=== PATIENT | female | born 1945 | race Caucasian/White ===

== ENCOUNTER 2016-12-15 13:15 | Emergency (ER) | payer MEDICARE, OTHER ==
[2016-12-15] MEDS ORDERED: NORMAL SALINE 1,000 ML IV ONE (13:21)
--- NOTE | 2016-12-15 13:30 | ERNOTE ---
Head Injury HPI - Narrative Date of Service: 12/15/16 - General Injury to: head Time Seen by Provider: 12/15/16 13:20 Source: patient Exam Limitations: no limitations - Immun/Allergies/Home Medications Allergies/Adverse Reactions: Allergies Allergy/AdvReac Type Severity Reaction Status Date / Time No Known Allergies Allergy Unverified 12/15/16 13:24 Home Medications: HOME MEDICATIONS Atorvastatin Calcium 20 mg PO DAILY 12/15/16 [Last Taken Unknown] Donepezil HCl [Aricept] 10 mg PO DAILY 12/15/16 [Last Taken Unknown] Doxepin HCl [Sinequan] 10 mg PO TID 12/15/16 [Last Taken Unknown] Folic Acid 1 mg PO DAILY 12/15/16 [Last Taken Unknown] LORazepam [Ativan] 1 mg PO BID 12/15/16 [Last Taken Unknown] Levothyroxine Sodium [Synthroid] 50 mcg PO DAILY 12/15/16 [Last Taken Unknown] Metoprolol Succinate [Toprol Xl] 100 mg PO DAILY 12/15/16 [Last Taken Unknown] Mirtazapine [Mirtazapine (Remeron)] 15 mg PO HS 12/15/16 [Last Taken Unknown] Omeprazole 20 mg PO DAILY 12/15/16 [Last Taken Unknown] Potassium Chloride [K-Dur] 20 meq PO BID 12/15/16 [Last Taken Unknown] Sertraline HCl [Zoloft] 100 mg PO BID 12/15/16 [Last Taken Unknown] Valsartan 320 mg PO DAILY 12/15/16 [Last Taken Unknown] Warfarin Sodium [Coumadin] 4 mg PO ONCE 12/15/16 [Last Taken Unknown] Warfarin Sodium [Coumadin] 5 mg PO ONCE 12/15/16 [Last Taken Unknown] - History of Present Illness Narrative: Pt. comes in with c/ dizziness, lethargy. weakness, and nausea after hitting her posterior occiput this morning when the bed broke. Pt. family was able to help her up and she denied any injury when the incident occurred but then went to sleep and when her daughter woke her up the symptoms were noted. Occurred: this morning Location Occurred: home Severity: moderate Head Injury Location: occipital Method of Injury: Reports: fell Reason for Fall: Reports: other - bed broke Loss of Consciousness: Reports: no loss of consciousness, remembers event, remembers coming to hospital Associated Symptoms: Reports: headaches, neck pain, weakness, malaise, nausea, vomiting, other injuries - dizziness Review of Systems - Review of Systems Constitutional: Present: weakness, fatigue, malaise. Absent: recent illness, fever, chills EYE: Present: blurred vision - resolved now. Absent: double vision ENT: Present: nasal drainage - clear. Absent: pulling on ears, nose pain, nose congestion Respiratory: Present: no symptoms reported. Absent: shortness of breath, cough , wheezing Cardiology: Present: no symptoms reported. Absent: chest pain, palpitations, edema Gastrointestinal/Abdominal: Present: nausea, vomiting. Absent: diarrhea, abdominal pain Genitourinary: Present: no symptoms reported Musculoskeletal: Present: neck pain. Absent: back pain, joint pain Skin: Present: no symptoms reported Neurological: Present: headache, dizziness/light-headedness, weakness - generalized. Absent: numbness, tingling Hematologic/Lymphatic: Present: easy bruising, easy bleeding All Other Systems: All systems neg except as marked - Patient's Past Medical History Patient History - Cardiac/Respiratory: Atrial Fibrillation, CHF, Other - coumadin therapy Physical Exam - Physical Exam General Appearance: Present: wd/wn, no apparent distress, lethargic, obese Head Exam: Present: tenderness - post occiput. Absent: contusions, ecchymosis Eye Exam: Normal inspection: bilateral, PERRL: bilateral, EOMI: bilateral Ears, Nose, Throat: Present: normal except -, normal pharynx, other - clear nasal drainage Neck: Present: full range of motion, tender posterior midline - C2-3. Absent: lymphadenopathy (R), lymphadenopathy (L) Respiratory: Present: no respiratory distress, normal breath sounds, no accessory muscle use, chest nontender, lungs clear Cardiovascular/Chest: Present: regular rate, rhythm, no murmur, normal peripheral pulses Gastrointestinal/Abdominal: Present: normal bowel sounds, nontender, nondistended, soft, no organomegaly Back Exam: Present: normal inspection, normal range of motion, no CVA tenderness , no vertebral tenderness Extremity Exam: Present: normal inspection, non-tender, normal range of motion, no edema Neurological Exam: Present: oriented, normal mood/affect, no motor/sensory deficits, other - unable to stand, slow to respond, forgetting words, lethargic Skin Exam: Present: warm/dry, pallor ED Progress - Date and Time Seen: Date and Time: 12/15/16 13:56 Received report from daughter and she states that fall actually occurred when pt. was sitting on the edge of the bathtub and not as pt. first described. 12/15/16 15:[address] results with Dr Fisher and pt. daughter and Sub acute and chronic strokes oted on CT scan daughter does not note any new symptoms except for directly after fall as pt. has chronic dementia and deficits. Offered observation stay to daughter to rule out CVA and they decline which I feel is ok as pt. is not likely acute and is going to follow up with PCP in 2 days. - Results and Orders Patient's Lab Results:: I have reviewed the patient's lab results. - Vital Signs Patient's Vital Signs:: I have reviewed the patient's vital signs. - CT/Ultrasound CT/Ultrasound Narrative: CT head and neck with chronic changes including multiple chronic or sub acute strokes and multilevel herniated disks. - Progress/Reassessment Progress:: Improved Departure Clinical Impression: Brain concussion Qualifiers: Encounter type: initial encounter Loss of consciousness presence/duration: without LOC Qualified Code(s): S06.0X0A - Concussion without loss of consciousness, initial encounter - Departure Disposition: Home self-care Condition: Good Instructions: Post-Concussion Syndrome Additional Instructions: Please follow up with primary provider in 2-3 days to reassess pt. and decide on further testing or treatment plan. May take Tylenol sparingly but should use Biofreeze, heat and Ice first. Referrals: Arabella Reyes DO [Primary Care Provider] -
[2016-12-15 13:48] LABS: Hematocrit 37.9 % (37.0-47.0); Hemoglobin 12.2 gm/dL (12.5-16.0); Mean Cell Volume 85.2 fl (78-100); Mean Corpuscular Hemoglobin 27.4 pg (27-31); Mean Corpuscular Hgb Conc 32.2 g/dl (32-36); Mean Platelet Volume 10.4 fl (6.0-9.5); Neutrophil # 9.1 K/mm3 (1.3-6.0); Neutrophil % 91.6 % (42-75.0); Platelet Count 167 K/mm3 (150-450); Red Blood Count 4.45 M/mm3 (4.2-5.4); Red Cell Distribution Width 15.4 % (11.5-14.0); White Blood Count 9.9 K/mm3 (4.0-10.5)
[2016-12-15 13:50] LABS: Albumin * 3.4 gm/dl (3.4-5.0); BUN/Creatinine Ratio 10.4 (9.0-21.6); Bilirubin, Total 0.7 mg/dL (0.0-1.1); Ca. Corrected For Albumin 8.7 mg/dL (8.4-10.2); Calcium * 8.5 mg/dL (7.9-10.9); Carbon Dioxide 28.5 mmol/L (24-32.6); Potassium 3.5 mmol/L (3.4-4.6); Total Protein 6.9 gm/dL (6.2-8.2)
[2016-12-15 14:32] LABS: INR 1.89 INR (0.90-1.10)
[2016-12-15 14:49] LABS: Urine Bilirubin Negative (NEGATIVE); Urine Blood Negative /ul (NEGATIVE); Urine Ketone Negative (NEGATIVE); Urine Nitrite Negative (NEGATIVE); Urine Protein Negative (NEGATIVE); Urine Specific Gravity 1.025 SP.GR. (1.005-1.010); Urine Urobilinogen Normal (NORMAL); Urine pH 5.5 pH (5.0-7.0)
[2016-12-15 15:02] LABS: Urine Appearance Cloudy; Urine Bacteria 1+; Urine Color Yellow; Urine Hyaline Cast 0-5 /LPF; Urine RBC None Seen /hpf (0-5); Urine WBC None Seen /hpf (0-5)
[2016-12-15 15:24] VITALS: BP 127/71
== END 2016-12-15 15:20 | disposition home or self-care (01) ==
LOC: ER 13:15
DX: S06.0X0A Concussion without loss of consciousness, initial encounter (principal); Z79.01 Long term (current) use of anticoagulants; W18.2XXA Fall in (into) shower or empty bathtub, initial encounter; Y92.002 Bathroom of unspecified non-institutional (private) residence as the place of occurrence of the external cause; I48.91 Unspecified atrial fibrillation; I50.9 Heart failure, unspecified; R53.1 Weakness

== ENCOUNTER 2017-05-08 01:57 | Inpatient (IN) | payer MEDICARE, OTHER ==
--- NOTE | 2017-05-08 02:33 | ERNOTE ---
Medical Problem HPI - General Chief Complaint: General Assessment Time Seen by Provider: 05/08/17 02:26 Source: patient, RN notes reviewed, old records Exam Limitations: no limitations - Immun/Allergies/Home Medications Immunizations: IMMUNIZATION HX Immunizations Up to Date Yes History of Influenza Vaccine Yes Hx Pneumococcal Vaccination No Allergies/Adverse Reactions: Allergies No Known Allergies Allergy (Unverified 05/08/17 02:16) Home Medications: HOME MEDICATIONS Atorvastatin Calcium 20 mg PO DAILY 12/15/16 [Last Taken Unknown] Donepezil HCl [Aricept] 10 mg PO DAILY 12/15/16 [Last Taken Unknown] Doxepin HCl [Sinequan] 10 mg PO TID 12/15/16 [Last Taken Unknown] LORazepam [Ativan] 1 mg PO BID 12/15/16 [Last Taken Unknown] Levothyroxine Sodium [Synthroid] 50 mcg PO DAILY 12/15/16 [Last Taken Unknown] Metoprolol Succinate [Toprol Xl] 100 mg PO DAILY 12/15/16 [Last Taken Unknown] Mirtazapine [Mirtazapine (Remeron)] 15 mg PO HS 12/15/16 [Last Taken Unknown] Omeprazole 20 mg PO DAILY 12/15/16 [Last Taken Unknown] Potassium Chloride [K-Dur] 20 meq PO BID 12/15/16 [Last Taken Unknown] Valsartan 320 mg PO DAILY 12/15/16 [Last Taken Unknown] Warfarin Sodium [Coumadin] 4 mg PO ONCE 12/15/16 [Last Taken Unknown] Warfarin Sodium [Coumadin] 5 mg PO ONCE 12/15/16 [Last Taken Unknown] Alendronate Sodium [Fosamax] 70 mg PO 05/08/17 [Last Taken Unknown] Ascorbic Acid [Vitamin C] 500 mg PO 05/08/17 [Last Taken Unknown] - History of Present History Narrative: Patient has refused to get out of bed all day, complains of diarrhea and not feeling well. She has chronic diarrhea, and was really weak a day or so ago while in the shower. She has been living with her in [facility], but her step-daughter realized recently that they were not able to maintain themselves. The patient's has medical issues as does the patient herself , and so she decided that they need to live with her. None of these people are adjusted to each other, and the step-daughter is trying to get all of the health issues figured out. Patient has not eaten all day, but has drank 3 bottles (8 oz?) of water today, which is her "normal." Timing: unsure Severity: moderate Modifying Factors - (Improves): Present: other - nothing Modifying Factors - (Worsens): Present: other - nothing Review of Systems - Review of Systems Constitutional: Present: recent illness, weakness, fatigue, malaise EYE: Present: no symptoms reported ENT: Present: no symptoms reported Respiratory: Absent: shortness of breath, cough Cardiology: Absent: chest pain Gastrointestinal/Abdominal: Present: diarrhea. Absent: nausea, vomiting, abdominal pain Genitourinary: Present: no symptoms reported Musculoskeletal: Present: no symptoms reported Skin: Present: dryness Neurological: Present: depressed Endocrine: Present: no symptoms reported Psych: Present: depressed - Patient's Past Medical History Patient History - Medical: Anxiety, Dementia Patient History - Cardiac/Respiratory: Atrial Fibrillation, CHF, Hypertension, Other Patient History - Cancer: No Hx of Cancer Patient History - Surgical Procedures: No surgical history Patient History - Other: None - Social History Living Situations: spouse Abuse History: No History of abuse Psych History: Hx of Anxiety, Hx of Depression, Current tx/ever been on anti- depressants or anti-anxiety meds Smoking Status: Never smoker Have you smoked in the past 12 months: No Alcohol Use: none Drug Use: none - Immunizations Immunizations Up to Date: Yes Hx Pneumococcal Vaccination: No History of Influenza Vaccine: Yes Physical Exam - Physical Exam General Appearance: Present: alert, no apparent distress, obese Head Exam: Present: normal inspection, no evidence of injury Eye Exam: Normal inspection: bilateral, PERRL: bilateral, EOMI: bilateral Ears, Nose, Throat: Present: dry mucous membranes Neck: Present: normal inspection, nontender Respiratory: Present: no respiratory distress, normal breath sounds, no accessory muscle use, chest nontender, lungs clear Cardiovascular/Chest: Present: no murmur, irregularly irregular Gastrointestinal/Abdominal: Present: normal bowel sounds, nontender, nondistended, soft Back Exam: Present: normal inspection, normal range of motion Extremity Exam: Present: normal inspection, non-tender, normal range of motion, no edema Neurological Exam: Present: alert, head still operator II-XII nml as tested, disoriented to situation Skin Exam: Present: pallor ED Progress - Results and Orders Patient's Lab Results:: I have reviewed the patient's lab results. Results and Orders: Laboratory Last Values WBC 10.1 K/mm3 (4.0-10.5) 05/08/17 02:51 RBC 4.63 M/mm3 (4.2-5.4) 05/08/17 02:51 Hgb 13.2 gm/dL (12.5-16.0) 05/08/17 02:51 Hct 39.8 % (37.0-47.0) 05/08/17 02:51 MCV 86.0 fl (78-100) 05/08/17 02:51 MCH 28.5 pg (27-31) 05/08/17 02:51 MCHC 33.2 g/dl (32-36) 05/08/17 02:51 RDW 14.6 % (11.5-14.0) H 05/08/17 02:51 Plt Count 258 K/mm3 (150-450) 05/08/17 02:51 MPV 10.5 fl (6.0-9.5) H 05/08/17 02:51 Immature Gran % (Auto) 0.30 % (0.001-0.429) 05/08/17 02:51 Immature Gran # (Auto) 0.03 K/mm3 (0.000-0.0310) 05/08/17 02:51 Neutrophils % 91.2 % (42-75.0) H 05/08/17 02:51 Lymphocytes % 3.6 % (20-51) L 05/08/17 02:51 Monocytes % 4.1 % (0.0-9) 05/08/17 02:51 Eosinophils % 0.5 % (0.0-3.0) 05/08/17 02:51 Basophils % 0.3 % (0.0-1.0) 05/08/17 02:51 Nucleated RBC % 0.0 k/mm3 (0-1) 05/08/17 02:51 Neutrophils # 9.2 K/mm3 (1.3-6.0) H 05/08/17 02:51 Lymphocytes # 0.36 k/mm3 (1.5-3.5) L 05/08/17 02:51 Monocytes # 0.4 k/mm3 (0.0-1.0) 05/08/17 02:51 Eosinophils # 0.1 k/mm3 (0.0-0.7) 05/08/17 02:51 Absolute Basophils 0.0 k/mm3 (0.0-0.1) 05/08/17 02:51 Sodium 140 mmol/L (132-142) 05/08/17 02:51 Plasma Sodium 141 mmol/L (130-142) 05/08/17 02:51 Potassium 3.0 mmol/L (3.4-4.6) L 05/08/17 02:51 Chloride 103 mmol/L (97-106) 05/08/17 02:51 Carbon Dioxide 18.6 mmol/L (24-32.6) L 05/08/17 02:51 Anion Gap 21.4 mmol/L (6.8-13.8) H 05/08/17 02:51 BUN 26 mg/dL (3-23) H D 05/08/17 02:51 Creatinine 1.69 mg/dL (0.4-1.4) H D 05/08/17 02:51 Est GFR (Non-Af Amer) 32 mL/min (60-130) L D 05/08/17 02:51 BUN/Creatinine Ratio 15.4 (9.0-21.6) 05/08/17 02:51 Random Glucose 132 mg/dL (70-110) H 05/08/17 02:51 Lactic Acid, Venous 2.8 mmol/L (0.4-1.9) H* 05/08/17 02:51 Calcium 8.5 mg/dL (7.9-10.9) 05/08/17 02:51 Calcium Adj for Albumin 8.7 mg/dL (8.4-10.2) 05/08/17 02:51 Total Bilirubin 0.9 mg/dL (0.0-1.1) 05/08/17 02:51 AST 25 U/L (0-48) 05/08/17 02:51 ALT 29 U/L (19-67) 05/08/17 02:51 Alkaline Phosphatase 108 U/L (50-170) 05/08/17 02:51 Troponin I Less than 0.017 ng/ml (0.00-0.10) 05/08/17 02:51 B-Natriuretic Peptide 2535 pg/mL (5-325) H 05/08/17 02:51 Total Protein 7.1 gm/dL (6.2-8.2) 05/08/17 02:51 Albumin 3.3 gm/dl (3.4-5.0) L 05/08/17 02:51 Procalcitonin 0.26 ng/mL (0.05-0.50) 05/08/17 02:53 - Vital Signs Patient's Vital Signs:: I have reviewed the patient's vital signs. Vital Signs: Vital Signs 05/08/17 02:06 Temperature 36.7 C Pulse Rate 92 Respiratory 20 Rate Blood Pressure 89/46 O2 Sat by Pulse 94 Oximetry - EKG EKG: atrial fibrillation - with RVR, nonspecific ST T wave changes EKG read: Interp. by me - X-Ray X-Ray #1 X-Ray: chest Interpretation: Interp. by me X-ray Comments: Poor inspiration. Cardiomegaly. Surgical clips in left upper quadrant. No bony abnormalities noted other Kyphosis noted. X-Ray #2 X-Ray: abdomen Interpretation: Interp. by me X-ray Comments: No free air. Some Air/fluid levels in the lower abdomen. Surgical clips in both left and right upper abdomen. - Progress/Reassessment Chief Complaint: General Assessment Progress:: Improved Progress Note-Subjective: 05/08/17 04:50 I have spoken with KEMAL Beaver, Hospitalist, she agrees to accept the patient for admission for further evaluation and treatment. Will admit for observation. Departure Clinical Impression: Dehydration, moderate, Hypokalemia due to loss of potassium, Atrial fibrillation with rapid ventricular response Sepsis Qualifiers: Sepsis type: sepsis due to unspecified organism Qualified Code(s): A41.9 - Sepsis, unspecified organism - Departure Disposition: Still a patient Condition: Fair
[2017-05-08] MEDS ORDERED: NORMAL SALINE 1,000 ML IV ONE (02:54)
[2017-05-08 02:56] LABS: Hematocrit 39.8 % (37.0-47.0); Hemoglobin 13.2 gm/dL (12.5-16.0); Mean Corpuscular Hemoglobin 28.5 pg (27-31); Mean Corpuscular Hgb Conc 33.2 g/dl (32-36); Mean Platelet Volume 10.5 fl (6.0-9.5); Neutrophil # 9.2 K/mm3 (1.3-6.0); Neutrophil % 91.2 % (42-75.0); Platelet Count 258 K/mm3 (150-450); Red Blood Count 4.63 M/mm3 (4.2-5.4); Red Cell Distribution Width 14.6 % (11.5-14.0); White Blood Count 10.1 K/mm3 (4.0-10.5)
[2017-05-08 02:57] LABS: Anion Gap 21.4 mmol/L (6.8-13.8); BUN/Creatinine Ratio 15.4 (9.0-21.6); Blood Urea Nitrogen 26 mg/dL (3-23); Calcium * 8.5 mg/dL (7.9-10.9); Carbon Dioxide 18.6 mmol/L (24-32.6); Chloride 103 mmol/L (97-106); Glucose * 132 mg/dL (70-110); Sodium 140 mmol/L (132-142)
[2017-05-08 02:58] LABS: ALT 29 U/L (19-67); AST 25 U/L (0-48); Albumin * 3.3 gm/dl (3.4-5.0); Alkaline Phosphatase * 108 U/L (50-170); BNP * 2535 pg/mL (5-325); Bilirubin, Total 0.9 mg/dL (0.0-1.1); Ca. Corrected For Albumin 8.7 mg/dL (8.4-10.2); Total Protein 7.1 gm/dL (6.2-8.2); Troponin I Less than 0.017 ng/ml (0.00-0.10)
[2017-05-08] MEDS ORDERED: POTASSIUM CHLORIDE 10 MEQ in NORMAL SALINE 1,000 ML IV SCH (05:15)
[2017-05-08] MEDS: POTASSIUM CHLORIDE 10 MEQ in NORMAL SALINE 1,000 ML IV SCH ×2 (08:25→16:51)
[2017-05-08] MEDS ORDERED: DIATRIZOATE MEGLUMINE, SODIUM 30 ML BTL PO ONE (08:45)
--- NOTE | 2017-05-08 12:26 | HP ---
Chief Complaint - Chief Complaint Date of Service: 05/08/17 Time of Service: 10:00 Chief Complaint: Weakness, aggravation for past 2 weeks, generalized weakness, loss of ADLs to be independent. History of Present Illness: Alma Delia Wiley is a 72-year-old obese female who was presented to ER by family due to marked weakness and inability to get her diarrhea stopped. She has been lightheaded and weak. Onset of diarrhea was 2 weeks ago. - Patient's Past Medical History Patient History - Medical: Anxiety, Dementia, Depression, Hypothyroidism Patient History - Cardiac/Respiratory: Atrial Fibrillation, CHF, Hypertension, Hyperlipidemia, Other Patient History - Cancer: No Hx of Cancer Patient History - Surgical Procedures: Cholecystectomy, Gastric Bypass Patient History - Other: None - Family History Mother Family History - Medical: Family History - Cardiac/Respiratory: CVA/Stroke Father Family History - Medical: Family History - Cardiac/Respiratory: History Unknown Family History - Cancer: History Unknown Brother Family History - Medical: History Unknown Family History - Cardiac/Respiratory: CVA/Stroke Family History - Cancer: History Unknown Sister Family History - Medical: History Unknown Family History - Cardiac/Respiratory: CVA/Stroke Family History - Cancer: History Unknown - Social History Living Situations: other Abuse History: No History of abuse Psych History: Psychiatric Hx, Hx of Anxiety, Hx of Depression, Current tx/ever been on anti-depressants or anti-anxiety meds Smoking Status: Never smoker Have you smoked in the past 12 months: No Alcohol Use: none Drug Use: none - Immunizations Immunizations Up to Date: Yes Hx Pneumococcal Vaccination: No History of Influenza Vaccine: Yes Review Of Systems (GEN) - Review of Systems Generalized/Overall Review: Present: Weakness, Fatigue, Weight loss EENTM: Present: No Symptoms Reported Respiratory: Present: No Symptoms Reported Cardiac: Present: Other - History of A. fib with RVR Abdominal: Present: Diarrhea - Several times a day for the past 2 weeks. Absent : Melena, Bright blood from rectum Genitourinary: Present: Oliguria Musculoskeletal: Present: No Symptoms Reported Neurological: Present: Depressed Skin: Present: No Symptoms Reported Endocrine: Present: No Symptoms Reported, Other - History of hypothyroidism Misc: All systems neg except as marked Allergies/Adverse Reactions: Allergies Allergy/AdvReac Type Severity Reaction Status Date / Time Milk Containing Products AdvReac Severe Diarrhea Verified 05/08/17 06:29 adhesive tape AdvReac Unknown Verified 05/08/17 06:29 Penicillins AdvReac Unknown Verified 05/08/17 06:27 Home Medications: HOME MEDICATIONS Atorvastatin Calcium 1 tab PO HS 12/15/16 [Last Taken Unknown] Donepezil HCl [Aricept] 10 mg PO HS 12/15/16 [Last Taken Unknown] Doxepin HCl [Sinequan] 10 mg PO TID 12/15/16 [Last Taken Unknown] LORazepam [Ativan] 1 mg PO BID 12/15/16 [Last Taken Unknown] Levothyroxine Sodium [Synthroid] 50 mcg PO QAM 12/15/16 [Last Taken Unknown] Metoprolol Succinate [Toprol Xl] 100 mg PO DAILY 12/15/16 [Last Taken Unknown] Mirtazapine [Mirtazapine (Remeron)] 15 mg PO HS 12/15/16 [Last Taken Unknown] Warfarin Sodium [Coumadin] 4 mg PO DAILY 12/15/16 [Last Taken Unknown] Alendronate Sodium [Fosamax] 70 mg PO PRN 05/08/17 [Last Taken Unknown] Ascorbic Acid [Vitamin C] 500 mg PO DAILY 05/08/17 [Last Taken Unknown] Folic Acid 1 mg PO DAILY 05/08/17 [Last Taken Unknown] Omeprazole [Prilosec] 20 mg PO QAM 05/08/17 [Last Taken Unknown] Potassium Chloride [K-Dur] 20 meq PO BID 05/08/17 [Last Taken Unknown] Sertraline HCl [Zoloft] 2 tab PO DAILY 05/08/17 [Last Taken Unknown] Valsartan/Hydrochlorothiazide [Diovan Hct 320-25 mg Tablet] 1 each PO DAILY [Last Taken Unknown] Exam - Exam Vital Signs: Vital Signs - Last Taken Temp 36.6 C 05/08/17 12:07 Pulse 78 05/08/17 12:07 Resp 18 05/08/17 12:07 BP 108/61 05/08/17 12:07 Pulse Ox 96 05/08/17 12:07 Constitutional: Present: Alert, Oriented x3, Cooperative, Well developed, Well nourished, Obese ENT Exam: Present: normal ENT inspection, hearing grossly normal, pharynx normal Eye Exam: bilateral eye: normal inspection, PERRL, EOMI Neck: Present: non-tender, normal inspection, trachea midline. Absent: lymphadenopathy (R), lymphadenopathy (L) Back Exam: Present: vertebral tenderness - At about L1 Respiratory: Present: chest non-tender, lungs clear, normal breath sounds, no respiratory distress, no accessory muscle use Cardiovascular/Chest: Present: normal peripheral pulses, irregularly irregular Peripheral Pulses: carotid (R): 2+, carotid (L): 2+, femoral (R): 2+, femoral (L ): 2+, dorsalis-pedis (R): 1+, dorsalis-pedis (L): 1+, radial (R): 2+, radial (L ): 2+ Abdomen: Present: Normal bowel sounds, soft, tender - In the right upper quadrant. 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 Absent: normal mood/affect, oriented x 3 Appearance: Present: appropriate appearance, appropriate insight Eye contact: Present: cooperative, good eye contact, normal speech Thoughts: Present: normal thought pattern, no apparent hallucination - Alma Delia takes a lot of psych meds but seems rational and conversant this morning. Diagnostic Studies: Abnormal Lab Results 05/08/17 Range/Units Unknown D-Dimer 0.72 H (0.19-0.49) mg/L Laboratory Results WBC 10.1 K/mm3 (4.0-10.5) 05/08/17 02:51 RBC 4.63 M/mm3 (4.2-5.4) 05/08/17 02:51 Hgb 13.2 gm/dL (12.5-16.0) 05/08/17 02:51 Hct 39.8 % (37.0-47.0) 05/08/17 02:51 MCV 86.0 fl (78-100) 05/08/17 02:51 MCH 28.5 pg (27-31) 05/08/17 02:51 MCHC 33.2 g/dl (32-36) 05/08/17 02:51 RDW 14.6 % (11.5-14.0) H 05/08/17 02:51 Plt Count 258 K/mm3 (150-450) 05/08/17 02:51 MPV 10.5 fl (6.0-9.5) H 05/08/17 02:51 Immature Gran % (Auto) 0.30 % (0.001-0.429) 05/08/17 02:51 Immature Gran # (Auto) 0.03 K/mm3 (0.000-0.0310) 05/08/17 02:51 Neutrophils % 91.2 % (42-75.0) H 05/08/17 02:51 Lymphocytes % 3.6 % (20-51) L 05/08/17 02:51 Monocytes % 4.1 % (0.0-9) 05/08/17 02:51 Eosinophils % 0.5 % (0.0-3.0) 05/08/17 02:51 Basophils % 0.3 % (0.0-1.0) 05/08/17 02:51 Nucleated RBC % 0.0 k/mm3 (0-1) 05/08/17 02:51 Neutrophils # 9.2 K/mm3 (1.3-6.0) H 05/08/17 02:51 Lymphocytes # 0.36 k/mm3 (1.5-3.5) L 05/08/17 02:51 Monocytes # 0.4 k/mm3 (0.0-1.0) 05/08/17 02:51 Eosinophils # 0.1 k/mm3 (0.0-0.7) 05/08/17 02:51 Absolute Basophils 0.0 k/mm3 (0.0-0.1) 05/08/17 02:51 D-Dimer 0.72 mg/L (0.19-0.49) H 05/08/17 Unknown Sodium 140 mmol/L (132-142) 05/08/17 02:51 Plasma Sodium 141 mmol/L (130-142) 05/08/17 02:51 Potassium 3.0 mmol/L (3.4-4.6) L 05/08/17 02:51 Chloride 103 mmol/L (97-106) 03/17/18 02:51 Carbon Dioxide 18.6 mmol/L (24-32.6) L 05/08/17 02:51 Anion Gap 21.4 mmol/L (6.8-13.8) H 05/08/17 02:51 BUN 26 mg/dL (3-23) H D 05/08/17 02:51 Creatinine 1.69 mg/dL (0.4-1.4) H D 05/08/17 02:51 Est GFR (Non-Af Amer) 32 mL/min (60-130) L D 05/08/17 02:51 BUN/Creatinine Ratio 15.4 (9.0-21.6) 05/08/17 02:51 Random Glucose 132 mg/dL (70-110) H 05/08/17 02:51 Lactic Acid, Venous 1.7 mmol/L (0.4-1.9) 05/08/17 05:30 Calcium 8.5 mg/dL (7.9-10.9) 05/08/17 02:51 Calcium Adj for Albumin 8.7 mg/dL (8.4-10.2) 05/08/17 02:51 Total Bilirubin 0.9 mg/dL (0.0-1.1) 05/08/17 02:51 AST 25 U/L (0-48) 05/08/17 02:51 ALT 29 U/L (19-67) 05/08/17 02:51 Alkaline Phosphatase 108 U/L (50-170) 05/08/17 02:51 Troponin I Less than 0.017 ng/ml (0.00-0.10) 05/08/17 02:51 B-Natriuretic Peptide 2535 pg/mL (5-325) H 05/08/17 02:51 Total Protein 7.1 gm/dL (6.2-8.2) 05/08/17 02:51 Albumin 3.3 gm/dl (3.4-5.0) L 05/08/17 02:51 Procalcitonin 0.26 ng/mL (0.05-0.50) 05/08/17 02:53 Stl C.difficile Tox A&B Negative (Negative) 05/08/17 Unknown Assessment/Plan - Narrative Narrative: In reviewing Alma Delia chart and especially her lab work we find that her d- dimer is elevated critically at 0.72. Her EGFR is quite low at 32 and her potassium is low at 3.0. Her BNP is high at 2535 and her albumin is low at 3.3. C. difficile screen done in ER was negative. The chest x-ray shows mild cardiomegaly with left lower lobe atelectasis. The x-ray is hypoventilatory and shows poor lung expansion. The KUB is abnormal showing abnormal bowel gas pattern suggestive of colitis or other diarrheal disease. Also incidental finding is a compression fracture of L1 which could be acute or chronic and Dr. Iverson suggests we consider pathological fracture. This will require an MRI will be done as an outpatient. Also her lactic acid level was elevated at 2.8 on admission but this morning is 1.7. ER physician was concerned possibly of sepsis but I suspect it's just from her intractable diarrhea. She has not been hypotensive since admission. She received a full liter of fluid in the ER for admission which is probably improved her status a lot. She has been rehydrated nicely through the night and this morning and appears to be much better hydrated at this point. Her mucous membranes are now moist. She is more alert and conversant. Her skin turgor is improved. Her bowel sounds are more normal now. And she is voiding some now. As well. I had wanted CT of her chest and abdomen with contrast today but elected not to since her renal status would not allow contrast media which would be required to see a pulmonary embolus. We will proceed with ultrasound of the legs. Proceed with echocardiogram when available. And I will anticoagulate her with aliquots 5 mg twice a day (due to her decreased renal function). We'll reassess her lab work again tomorrow morning and repeat chest x-ray tomorrow morning as well as another two-view abdomen. CT imaging will be deferred until I can get her renal status were safe. She'll continue to get IV fluids and IV potassium for now. Also check a sedimentation rate and a C-reactive protein. I 'll also have PT and OT evaluate her. - Assessment/Plan (1) Intractable diarrhea Problem: Acute (2) Dehydration, moderate Problem: Acute (3) Hypokalemia due to loss of potassium Problem: Acute (4) Sepsis Problem: Resolved Qualifiers: Sepsis type: sepsis due to unspecified organism Qualified Code(s): A41.9 - Sepsis, unspecified organism (5) Atrial fibrillation with rapid ventricular response Problem: Acute
[2017-05-08] MEDS: NYSTATIN 15 APPL BTL TP SCH ×2 (13:43→20:47)
[2017-05-08 13:48] LABS: Prothrombin Time (Patient) 20.7 Seconds (9.0-11.0)
[2017-05-08 13:49] LABS: INR 2.05 INR (0.90-1.10)
[2017-05-08] MEDS: DOXEPIN HCL 10 MG CAPSULE PO SCH ×2 (14:55→17:00)
[2017-05-08] MEDS: DIPHENOXYLATE HCL/ATROP SULF 2.5 MG TABLET PO SCH ×3 (14:55→20:45)
[2017-05-08 16:09] LABS: Urine Appearance Clear (CLEAR); Urine Bilirubin Negative (NEGATIVE); Urine Color Yellow; Urine Ketone Negative (NEGATIVE)
[2017-05-08 16:11] LABS: Urine Blood 5 /ul (NEGATIVE); Urine Nitrite Negative (NEGATIVE); Urine Protein Negative (NEGATIVE); Urine Urobilinogen Normal (NORMAL)
[2017-05-08 16:13] LABS: Urine Bacteria 2+; Urine RBC 0-5 /hpf (0-5); Urine WBC 0-5 /hpf (0-5)
[2017-05-08] MEDS ORDERED: WARFARIN SODIUM 1 MG TABLET ONE (17:56)
[2017-05-08] MEDS ORDERED: WARFARIN SODIUM 4 MG TABLET PO ONE (18:00)
[2017-05-08] MEDS: LORazepam 1 MG TABLET PO SCH (20:44)
[2017-05-08] MEDS: MIRTAZAPINE 15 MG TABLET PO SCH (20:45)
[2017-05-08] MEDS ORDERED: POTASSIUM CHLORIDE 20 MEQ TABLET.SA PO SCH (21:00)
[2017-05-09] MEDS: POTASSIUM CHLORIDE 10 MEQ in NORMAL SALINE 1,000 ML IV SCH ×2 (01:20→11:37)
[2017-05-09 03:09] LABS: Hematocrit 29.9 % (37.0-47.0); Mean Cell Volume 86.2 fl (78-100); Mean Corpuscular Hemoglobin 28.8 pg (27-31); Mean Corpuscular Hgb Conc 33.4 g/dl (32-36); Mean Platelet Volume 9.5 fl (6.0-9.5); Neutrophil % 68.1 % (42-75.0); Platelet Count 146 K/mm3 (150-450); Red Blood Count 3.47 M/mm3 (4.2-5.4); White Blood Count 5.8 K/mm3 (4.0-10.5)
[2017-05-09 03:22] LABS: BUN/Creatinine Ratio 15.7 (9.0-21.6); CRP 3.9 mg/dL (0.0-0.9); Calcium * 7.4 mg/dL (7.9-10.9); Estimated Creat Clear 35.8; Magnesium 1.5 mg/dL (1.2-2.8)
[2017-05-09 03:26] LABS: Potassium 2.4 mmol/L (3.4-4.6)
[2017-05-09 03:32] LABS: Anion Gap 13.8 mmol/L (6.8-13.8); Carbon Dioxide 23.6 mmol/L (24-32.6)
[2017-05-09] MEDS ORDERED: POTASSIUM CHLORIDE 20 MEQ TABLET.SA PO ONE (04:37)
[2017-05-09] MEDS: LEVOTHYROXINE SODIUM 50 MCG TABLET PO SCH (06:37)
[2017-05-09] MEDS: PANTOPRAZOLE SODIUM 20 MG TABLET.DR PO SCH (06:37)
[2017-05-09 08:32] LABS: Prothrombin Time (Patient) 30.8 Seconds (9.0-11.0)
[2017-05-09 08:33] LABS: INR 3.05 INR (0.90-1.10)
[2017-05-09] MEDS ORDERED: HYDROCHLOROTHIAZIDE PO SCH (09:00)
[2017-05-09] MEDS ORDERED: VALSARTAN PO SCH (09:00)
[2017-05-09] MEDS ORDERED: [UNRECOGNIZED DRUG - OTHER] PO SCH (09:00)
[2017-05-09] MEDS: DOXEPIN HCL 10 MG CAPSULE PO SCH ×3 (09:15→16:33)
[2017-05-09] MEDS: NYSTATIN 15 APPL BTL TP SCH ×2 (09:15→20:19)
[2017-05-09] MEDS: LOSARTAN POTASSIUM 50 MG TABLET PO SCH (09:16)
[2017-05-09] MEDS: METOPROLOL SUCCINATE 100 MG TABLET.SA PO SCH (09:16)
[2017-05-09] MEDS: FOLIC ACID 1 MG TABLET PO SCH (09:16)
[2017-05-09] MEDS: SERTRALINE HCL 100 MG TABLET PO SCH (09:16)
[2017-05-09] MEDS: HYDROCHLOROTHIAZIDE 25 MG TABLET PO SCH (09:16)
[2017-05-09] MEDS: LORazepam 1 MG TABLET PO SCH ×2 (09:17→20:16)
[2017-05-09] MEDS: DIPHENOXYLATE HCL/ATROP SULF 2.5 MG TABLET PO SCH ×4 (09:29→20:16)
--- NOTE | 2017-05-09 12:08 | PN ---
Subjective - Date and Time Seen Date: 05/09/17 Time: 10:15 Subjective Narrative: Alma Delia Wiley is better this morning. She is sitting up in a chair and appears to be comfortable. She is attended by her and daughter. She is alert, oriented 3, pleasant, and responds to questions appropriately. She has times of confusion but I don't detect any event this morning. She's had no further diarrhea since starting the Lomotil. In speaking with her daughter I find that she has diarrhea at times and constipation at times. This is probably irritable bowel syndrome. This past week she had excessive amounts of diarrhea. The daughter also relates that she chronically is low and potassium. Her potassium was low this morning at 2.4 and she was started on IV potassium. I have increased it from 10 mEq per liter to 40 mEq per liter for the next 2 L. She was converted to a regular hospital stay. Objective Objective Narrative: Vital signs show pulse of 88 BP 103/57 respirators are 16 and unlabored. Skin is warm dry and pink. Her oxygen level is in the upper 90s. - Review of Systems Generalized/Overall Review: Reports: Weakness EENTM: Reports: No Symptoms Reported Respiratory: Reports: No Symptoms Reported Cardiac: Reports: No Symptoms Reported Abdominal: Reports: Diarrhea - Has stopped for now. Genitourinary Symptoms: Reports: No Symptoms Reported Musculoskeletal Complaints: Reports: No Symptoms Reported Neurological: Reports: No Symptoms Reported Skin: Reports: No Symptoms Reported Endocrine: Reports: No Symptoms Reported Misc: All systems neg except as marked - Vitals Vitals: Last Vital Signs Temp 36.4 C L 05/09/17 07:15 Pulse 88 05/09/17 09:16 Resp 16 05/09/17 07:15 BP 103/57 05/09/17 09:16 Pulse Ox 98 05/09/17 07:15 - Abnormal Lab Findings Abnormal Lab Findings: Abnormal Lab Results 05/08/17 05/08/17 05/09/17 Range/Units 07:40 13:37 03:05 RBC 3.47 L (4.2-5.4) M/mm3 Hgb 10.0 L (12.5-16.0) gm/dL Hct 29.9 L (37.0-47.0) % RDW 15.0 H (11.5-14.0) % Plt Count 146 L (150-450) K/mm3 Lymphocytes % 17.1 L (20-51) % Monocytes % 10.2 H (0.0-9) % Eosinophils % 4.1 H (0.0-3.0) % Lymphocytes # 0.99 L (1.5-3.5) k/mm3 ESR (0-15) mm/hr PT 20.7 H (9.0-11.0) Seconds INR (Anticoag Therapy) 2.05 H (0.90-1.10) INR Potassium (3.4-4.6) mmol/L Chloride (97-106) mmol/L Carbon Dioxide (24-32.6) mmol/L BUN (3-23) mg/dL Creatinine (0.4-1.4) mg/dL Est GFR (Non-Af Amer) (60-130) mL/min Calcium (7.9-10.9) mg/dL C-Reactive Prot, Quant (0.0-0.9) mg/dL Urine Blood 5 H (NEGATIVE) /ul Urine Bacteria 2+ H (NONE) 05/09/17 05/09/17 05/09/17 Range/Units 03:05 03:05 Unknown RBC (4.2-5.4) M/mm3 Hgb (12.5-16.0) gm/dL Hct (37.0-47.0) % RDW (11.5-14.0) % Plt Count (150-450) K/mm3 Lymphocytes % (20-51) % Monocytes % (0.0-9) % Eosinophils % (0.0-3.0) % Lymphocytes # (1.5-3.5) k/mm3 ESR 25 H (0-15) mm/hr PT 30.8 H (9.0-11.0) Seconds INR (Anticoag Therapy) 3.05 H (0.90-1.10) INR Potassium 2.4 L* (3.4-4.6) mmol/L Chloride 107 H (97-106) mmol/L Carbon Dioxide 23.6 L (24-32.6) mmol/L BUN 24 H (3-23) mg/dL Creatinine 1.53 H (0.4-1.4) mg/dL Est GFR (Non-Af Amer) 36 L (60-130) mL/min Calcium 7.4 L (7.9-10.9) mg/dL C-Reactive Prot, Quant 3.9 H (0.0-0.9) mg/dL Urine Blood (NEGATIVE) /ul Urine Bacteria (NONE) - Exam Exam Narrative: Vital signs and physical parents are described above. Physical exam is as below. Constitutional: Present: Alert, Oriented x3, Cooperative, Well developed, Well nourished, No distress ENT Exam: Present: normal ENT inspection, hearing grossly normal, pharynx normal Neck: Present: non-tender, full range of motion Respiratory: Present: chest non-tender, lungs clear, normal breath sounds, no respiratory distress, no accessory muscle use Cardiovascular/Chest: Present: normal peripheral pulses, regular rate, rhythm, no chest tenderness, no edema, no gallop, no JVD, no murmur Abdomen: Present: Normal bowel sounds, soft, nontender, nondistended, no rebound tenderness /Rectal: Present: Exam deferred Extremity: Present: non-tender, normal inspection, no pedal edema, no calf tenderness Skin Exam: Present: normal color, warm/dry, no cyanosis Lymphatic: Present: no adenopathy, axilla node tender (R) 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 Absent: sensory deficit Appearance: Present: appropriate appearance, appropriate insight, neat Eye contact: Present: cooperative, good eye contact, normal speech Thoughts: Present: normal thought pattern, no apparent hallucination, other - There is some psychomotor retardation. Assessment/Plan Plan Narrative: IV fluid replacement with 40 of potassium per liter. Then reassess her electrolytes. If they are improved tomorrow then switched to oral and send her home. - Problems/Diagnosis (1) Hypokalemia due to loss of potassium Problem: Acute (2) Intractable diarrhea Problem: Acute (3) Dehydration, moderate Problem: Acute (4) Sepsis Problem: Resolved Qualifiers: Sepsis type: sepsis due to unspecified organism Qualified Code(s): A41.9 - Sepsis, unspecified organism (5) Atrial fibrillation with rapid ventricular response Problem: Acute
[2017-05-09] MEDS: POTASSIUM CHLORIDE 40 MEQ in NORMAL SALINE 1,000 ML IV SCH ×2 (12:15→20:15)
[2017-05-09] MEDS ORDERED: WARFARIN SODIUM 4 MG TABLET PO SCH (17:00)
[2017-05-09] MEDS: MIRTAZAPINE 15 MG TABLET PO SCH (20:18)
[2017-05-10 05:27] LABS: Hematocrit 30.4 % (37.0-47.0); Hemoglobin 9.9 gm/dL (12.5-16.0); Mean Cell Volume 86.4 fl (78-100); Mean Corpuscular Hemoglobin 28.1 pg (27-31); Mean Corpuscular Hgb Conc 32.6 g/dl (32-36); Mean Platelet Volume 10.1 fl (6.0-9.5); Neutrophil # 2.9 K/mm3 (1.3-6.0); Neutrophil % 60.1 % (42-75.0); Platelet Count 154 K/mm3 (150-450); Red Blood Count 3.52 M/mm3 (4.2-5.4); Red Cell Distribution Width 15.3 % (11.5-14.0); White Blood Count 4.8 K/mm3 (4.0-10.5)
[2017-05-10 05:37] LABS: Prothrombin Time (Patient) 44.2 Seconds (9.0-11.0)
[2017-05-10 05:39] LABS: Anion Gap 10.5 mmol/L (6.8-13.8); BUN/Creatinine Ratio 12.5 (9.0-21.6); Calcium * 7.6 mg/dL (7.9-10.9); Carbon Dioxide 24.7 mmol/L (24-32.6); Estimated Creat Clear 45.6; INR 4.35 INR (0.90-1.10); Potassium 3.2 mmol/L (3.4-4.6)
[2017-05-10] MEDS ORDERED: POTASSIUM CHLORIDE 20 MEQ TABLET.SA PO ONE (05:52)
[2017-05-10] MEDS: LEVOTHYROXINE SODIUM 50 MCG TABLET PO SCH (07:27)
[2017-05-10] MEDS: PANTOPRAZOLE SODIUM 20 MG TABLET.DR PO SCH (07:27)
[2017-05-10] MEDS: DOXEPIN HCL 10 MG CAPSULE PO SCH (09:57)
[2017-05-10] MEDS: LORazepam 1 MG TABLET PO SCH (09:57)
[2017-05-10] MEDS: SERTRALINE HCL 100 MG TABLET PO SCH (09:57)
[2017-05-10] MEDS: FOLIC ACID 1 MG TABLET PO SCH (09:58)
[2017-05-10] MEDS: NYSTATIN 15 APPL BTL TP SCH (09:58)
[2017-05-10] MEDS: METOPROLOL SUCCINATE 100 MG TABLET.SA PO SCH (10:09)
[2017-05-10] MEDS: LOSARTAN POTASSIUM 50 MG TABLET PO SCH (10:09)
[2017-05-10] MEDS: DIPHENOXYLATE HCL/ATROP SULF 2.5 MG TABLET PO SCH (10:09)
[2017-05-10] MEDS: HYDROCHLOROTHIAZIDE 25 MG TABLET PO SCH (10:09)
--- NOTE | 2017-05-10 10:20 | DS ---
(1) Intractable diarrhea Problem: Acute (2) Dehydration, moderate Problem: Acute (3) Hypokalemia due to loss of potassium Problem: Acute (4) Sepsis Problem: Resolved Qualifiers: Sepsis type: sepsis due to unspecified organism Qualified Code(s): A41.9 - Sepsis, unspecified organism (5) Positive D dimer Problem: Acute (6) Elevated brain natriuretic peptide (BNP) level Problem: Acute (7) Atrial fibrillation with rapid ventricular response Problem: Acute Description of Stay: Shamir Wiley is a 72-year-old female who presented to the emergency room because of weakness and inability to stand and walk and take care of herself. She reports having excessive diarrhea over the previous 2 weeks. She was evaluated in the emergency room and admitted to observation for dehydration. Interestingly enough she has an elevated BNP of greater than 2500. She also has a critically high d-dimer. Her potassium was low at 3.0 initially and following rehydration dropped to 2.4. This then met criteria for admission to [facility] and a regular admission was started yesterday. She has been given normal saline with 40 mEq of potassium 2 L and her potassium is back to 3.2 this morning. She appears to be much better hydrated now. I am concerned that she may have a pulmonary embolus has caused her BNP to be elevated. Creatinine has been too high for this to do CT scan with contrast and PE protocol. An ultrasound has been scheduled for her lower extremities and echocardiogram is also been scheduled. Will however be done on an outpatient basis except for the echo which was done this morning. She is feeling much better and stronger pill she can cure for herself now. The diarrhea had stopped and she was given Lomotil twice a day. Her C. difficile screen was negative. She will be followed in the office of Dr. Ferrer or by me in 2 weeks. Procedures Performed: see notes below List Procedures: Echocardiogram Results and Findings: Her laboratory work should be included here. Her chest x-ray and KUB that were done on admission and again yesterday results should also be included. Microbiology 05/08/17 02:58 Blood Blood Culture - Preliminary NO GROWTH AFTER 48 HOURS Laboratory Tests 05/08/17 05/09/17 05/10/17 02:51 03:05 05:10 WBC Hgb MCV RDW Plt Count INR (Anticoag Therapy) 4.35 H* Potassium 3.0 L 2.4 L* BUN 26 H D 24 H Creatinine 1.69 H D 1.53 H Est GFR (Non-Af Amer) 32 L D 36 L Random Glucose 132 H 102 Calcium 8.5 7.4 L C-Reactive Prot, Quant 3.9 H B-Natriuretic Peptide 2535 H Total Protein 7.1 Albumin 3.3 L 05/10/17 05/10/17 05:10 05:10 WBC 4.8 Hgb 9.9 L MCV 86.4 RDW 15.3 H Plt Count 154 INR (Anticoag Therapy) Potassium 3.2 L D BUN 15 Creatinine 1.20 Est GFR (Non-Af Amer) 47 L D Random Glucose 102 Calcium 7.6 L C-Reactive Prot, Quant B-Natriuretic Peptide Total Protein Albumin [facility] PATIENT RADIOLOGY STUDY REPORT Patient Patient Name:SHAMIR WILEY Date: 1945 Sex: F Order Number: [id number] Unique Exam ID: [id number] Exam Requested: CXRPALAT - Chest PA Lateral * Date Scheduled: 05-08-2017 02:52 AM Study Priority: Requesting Service: Requesting Physician: Cecile Curtis Reason for Exam: weakness Radiological Report : [place] [address] NAME: SHAMIR WILEY : 1945 MR #: [id number] CC: Salvador Merino DO; Arabella Reyes DO; Ana SOMMER LOC: [place] ADM DATE: 05/08/17 X-RAY REPORT [id number] RAD/Chest PA Lateral * Exam Date: 05/08/2017 02:52 Ordering Physician: Cecile Curtis HISTORY: weakness. Additional history from technologist: Weakness. TECHNIQUE: PA and lateral views of the chest were obtained. 3 images. COMPARISONS: None Available FINDINGS: Chest PA Lateral * Hypoinflated lung volumes. No definite consolidation or focal mass effect. Likely atelectasis at the left lung base. No significant vascular congestion suggested. No pneumothorax or pleural fluid collections. Mild cardiomegaly suggested. Mild tortuosity of the thoracic aorta noted, with overlying atherosclerotic vascular calcifications. Trachea is in normal position. Bones show degenerative changes of the spine. Decreased mineralization of bone suggestive of underlying osteopenia or osteoporosis. IMPRESSION: 1. Hypoventilatory changes. 2. Left lower lobe atelectasis suggested. Potential early pneumonia cannot be entirely excluded. Consider follow-up. 3. Mild cardiomegaly. Thoracic aortic atherosclerotic disease. Electronically signed by Lisandro Iverson M.D.. Lisandro Iverson MD Dict: 05/08/17813 Typed: 05/08/1714/ 05/08/17 0816 05/08/17 0820 [facility] PATIENT RADIOLOGY STUDY REPORT Patient Patient Name:SHAMIR WILEY Date: 1945 Sex: F Order Number: [id number] Unique Exam ID: [id number] Exam Requested: CXRPALAT - Chest PA Lateral * Date Scheduled: 05-09-2017 07:00 AM Study Priority: Requesting Service: Requesting Physician: Salvador Merino Reason for Exam: pulmonary vasc congestion, pulm. effusions Radiological Report : [facility] [address] [place] [address] NAME: SHAMRI WILEY : 1945 MR #: [id number] CC: Salvador Merino DO; Arabella Reyes DO; Ana SOMMER LOC: [place] ADM DATE: 05/08/17 X-RAY REPORT [id number] RAD/Chest PA Lateral * Exam Date: 05/09/2017 07:00 Ordering Physician: Salvador Merino HISTORY: pulmonary vasc congestion, pulm. effusions. Additional history from technologist: History of dementia. Trouble holding breath. TECHNIQUE: PA and lateral views of the chest were obtained. 2 images. COMPARISONS: 05/08/2017 FINDINGS: Chest PA Lateral * Interval improvement in inflation of the lungs, and improvement in the basilar opacities. No definite new consolidation or focal mass. No significant vascular congestion suggested. No pneumothorax or pleural fluid collections. Mild enlargement of the cardiac silhouette noted. Mild tortuosity of the thoracic aorta noted, with overlying atherosclerotic vascular calcifications. Overall stable. Trachea is in normal position. Bones show degenerative changes of the spine. There is no subdiaphragmatic free air. Surgical clips are seen in the left upper quadrant of the abdomen. IMPRESSION: 1. No focal acute cardiopulmonary finding. 2. Additional comments are as above. Electronically signed by Lisandro Iverson M.D.. Lisandro Iverson MD Dict: 05/09/17846 Typed: 05/09/17/ [facility] PATIENT RADIOLOGY STUDY REPORT Patient Patient Name:SHAMIR WILEY Date: 1945 Sex: F Order Number: [id number] Unique Exam ID: [id number] Exam Requested: ABDCOMWDEC - Abdomen Flat W/ Upright * Date Scheduled: 05-09-2017 07:00 AM Study Priority: Requesting Service: Requesting Physician: Salvador Merino Reason for Exam: intractable diarrhea, follow-up from admission Radiological Report : [place] [address] NAME: SHAMIR WILEY : 1945 MR #: [id number] CC: Salvador Merino DO; Arabella Reyes DO; Ana SOMMER LOC: [place] ADM DATE: 05/08/17 X-RAY REPORT [id number] RAD/Abdomen Flat W/ Upright * Exam Date: 05/09/2017 07:00 Ordering Physician: Salvador Merino HISTORY: intractable diarrhea, follow-up from admission As per technologist, the patient drank oral contrast material for CT prior to this exam but the CT was canceled by the ordering provider. TECHNIQUE: AP upright and supine views of the abdomen were obtained, total of 5 images. COMPARISONS: 05/08/2017 FINDINGS: Abdomen Flat W/ Upright *: No subdiaphragmatic free air. There is is air distended colon, without definite signs of obstruction. Upright view demonstrates air-fluid levels within colonic segments which can be compatible with colitis or diarrheal disease. Somewhat hyperdense appearance of the colonic wall, which is most likely related to the ingested oral contrast material for CT. No definite signs of nephrolithiasis. Surgical clips are seen in the left upper quadrant underneath the left hemidiaphragm as well is in the right upper quadrant underneath the liver shadow suggestive of prior surgery. Osseous structures are intact. Degenerative changes of thoracolumbar spine and bilateral hips noted. IMPRESSION: 1. Abnormal bowel gas pattern suggestive of colitis or other diarrheal disease. 2. Additional comments are as above. Electronically signed by Lisandro Iverson M.D.. Lisandro Iverson MD Dict: 05/09/17847 Typed: 05/09/17 0848/ 05/09/17 0851 05/09/17 0855 [facility] PATIENT RADIOLOGY STUDY REPORT Patient Patient Name:SHAMIR WILEY Date: 1945 Sex: F Order Number: [id number] Unique Exam ID: [id number] Exam Requested: ABDCOMWDEC - Abdomen Flat W/ Upright * Date Scheduled: 05-08-2017 03:47 AM Study Priority: Requesting Service: Requesting Physician: Cecile Curtis Reason for Exam: diarrhea Radiological Report : [facility] [address] [place] [address] NAME: SHAMIR WILEY : 1945 MR #: [id number] CC: Salvador Merino DO; Arabella Reyes DO; Ana SOMMER LOC: [place] ADM DATE: 05/08/17 X-RAY REPORT [id number] RAD/Abdomen Flat W/ Upright * Exam Date: 05/08/2017 03:47 Ordering Physician: Cecile Curtis HISTORY: diarrhea TECHNIQUE: AP upright and supine views of the abdomen were obtained, total of 6 images. COMPARISONS: None available. FINDINGS: Abdomen Flat W/ Upright *: No subdiaphragmatic free air. No abnormal dilation of large or small bowel. Air-fluid levels noted throughout the colonic segments diffusely throughout the abdomen. Surgical clips are seen in the upper abdomen. No definite signs of renal or ureteral calcification. Pelvic calcifications most likely phleboliths. There is compression deformity, and sclerosis of the L1 vertebral body. There is degenerative changes of the spine and bilateral hips. IMPRESSION: 1. Abnormal bowel gas pattern suggestive of colitis or other diarrheal disease. 2. Incidental L1 compression fracture, with sclerosis. Consider acute or chronic compression fracture. Consider pathologic fracture. Dr. Curtis was informed regarding the above results by telephone on 05/08/2017 8: 26 AM. Electronically signed by Lisandro Iverson M.D.. Lisandro Iverson MD Dict: 05/08/17815 Typed: 05/08/17 0819/ 05/08/17 0827 05/08/17 0831 Discharge Location: Home w [facility] Disposition: Home self-care Condition: Fair Discharge Activity: Activity as tolerated Discharge Diet: Consistent carbs, High Fiber Referrals: Arabella Reyes DO [Primary Care Provider] - Prescriptions (Any new or edited meds): Diphenoxylate HCl/Atrop Sulf [Lomotil] 2.5 mg PO QID PRN #30 tablet PRN Reason: Diarrhea Metoprolol Succinate [Toprol Xl] 50 mg PO DAILY #30 tab Nystatin [Mycostatin Powder] 1 appl TP BID #1 btl Potassium Chloride [K-Dur] 20 meq PO DAILY #30 tab Spironolactone 25 mg PO DAILY #30 tablet Complete Home Medications List: Complete Home Medication List: Atorvastatin Calcium 1 tab PO HS 12/15/16 Donepezil HCl [Aricept] 10 mg PO HS 12/15/16 Doxepin HCl [Sinequan] 10 mg PO TID 12/15/16 LORazepam [Ativan] 1 mg PO BID 12/15/16 Levothyroxine Sodium [Synthroid] 50 mcg PO QAM 12/15/16 Mirtazapine [Remeron] 15 mg PO HS 12/15/16 Warfarin Sodium [Coumadin] 4 mg PO DAILY 12/15/16 Alendronate Sodium [Fosamax] 70 mg PO CANO 05/08/17 Ascorbic Acid [Vitamin C] 500 mg PO DAILY 05/08/17 Folic Acid 1 mg PO DAILY 05/08/17 Omeprazole [Prilosec] 20 mg PO QAM 05/08/17 Potassium Chloride [K-Dur] 20 meq PO BID 05/08/17 Sertraline HCl [Zoloft] 2 tab PO DAILY 05/08/17 Diphenoxylate HCl/Atrop Sulf [Lomotil] 2.5 mg PO QID PRN #30 tablet 05/10/17 Losartan Potassium [Cozaar] 50 mg PO DAILY #30 tablet 05/10/17 Metoprolol Succinate [Toprol Xl] 50 mg PO DAILY #30 tab 05/10/17 Nystatin [Mycostatin Powder] 1 appl TP BID #1 btl 05/10/17 Potassium Chloride [K-Dur] 20 meq PO DAILY #30 tab 05/10/17 Spironolactone 25 mg PO DAILY #30 tablet 05/10/17
[2017-05-10 12:08] VITALS: BP 98/58
--- NOTE | 2017-05-11 14:01 | ECHO ---
This report is available in the EMR
== END 2017-05-10 13:20 | disposition home or self-care (01) | DRG 641 ==
LOC: ER 01:57 → MS 05:14 → OBSVTOIN 05-09 12:55
PROVIDERS: ADMIT Nurse Practitioner; ATTEND Family Medicine
PROC: B246ZZZ Ultrasonography of Right and Left Heart (ICD-10-PCS; principal; 2017-05-10)
DX: E87.6 Hypokalemia (principal); M48.56XA Collapsed vertebra, not elsewhere classified, lumbar region, initial encounter for fracture; A08.8 Other specified intestinal infections; E86.0 Dehydration; R79.1 Abnormal coagulation profile; I48.91 Unspecified atrial fibrillation; E03.9 Hypothyroidism, unspecified; I10 Essential (primary) hypertension; E78.5 Hyperlipidemia, unspecified; Z79.01 Long term (current) use of anticoagulants
CPT/HCPCS: 36415; 71046; 74019; 80048; 80053; 81001; 83605; 83735; 83880; 84145; 84484; 85025; 85379; 85610; 85652; 86140; 87040; 87493; 93005; 93306; 96360; 99285; G0378